=== PATIENT | female | born 1975 | race African-American/Black ===

== ENCOUNTER 2017-04-28 11:05 | Emergency (ER) | payer OTHER ==
--- NOTE | 2017-04-28 12:10 | ER Document Report ---
HPI - HPI Pain Level: 4 Notes: Patient is a 42-year-old female who presents the ED complaining of bilateral eye redness and watery discharge with pruritus x1d. Patient states she used warm compresses this morning which helped. Patient left work early because of possible pinkeye. She denies any recent illness. Patient does take Claritin for allergies on occasion. Denies any headache, fever, neck pain/stiffness, eye pain, purulent discharge, changes in vision, light sensitivity, ear pain, URI, sore throat, chest pain, palpitations, syncope, cough, shortness of breath , wheeze, dyspnea, abdominal pain, nausea/vomiting/diarrhea, dysuria, hematuria , joint pains, or rash. - ROS Notes: REVIEW OF SYSTEMS: CONSTITUTIONAL : Denies fever, chills, or sweats. Denies recent illness. EENT: see hpi CARDIOVASCULAR: Denies chest pain. Denies palpitations or racing or irregular heart beat. Denies ankle edema. RESPIRATORY: Denies cough, cold, or chest congestion. Denies shortness of breath, difficulty breathing, or wheezing. GASTROINTESTINAL: Denies abdominal pain or distention. Denies nausea, vomiting , or diarrhea. Denies blood in vomitus, stools, or per rectum. Denies black, tarry stools. Denies constipation. GENITOURINARY: Denies difficulty urinating, painful urination, burning, frequency, blood in urine, or discharge. MUSCULOSKELETAL: Denies back or neck pain or stiffness. Denies joint pain or swelling. SKIN: Denies rash, lesions or sores. NEUROLOGICAL: Denies confusion or altered mental status. Denies passing out or loss of consciousness. Denies dizziness or lightheadedness. Denies headache. Denies weakness or paralysis or loss of use of either side. Denies problems with gait or speech. Denies sensory loss, numbness, or tingling. ALL OTHER SYSTEMS REVIEWED AND NEGATIVE. Dictation was performed using [employer] voice recognition software - REPRODUCTIVE Reproductive: DENIES: : - DERM Skin Color: Normal Past Medical History - Social History Smoking Status: Never Smoker Family History: Reviewed & Not Pertinent Renal/ Medical History: Denies: Hx Peritoneal Dialysis Past Surgical History: Reports: Hx Gynecologic Surgery - bartholin gland abscess , Hx Orthopedic Surgery - Immunizations Immunizations up to date: Yes Hx Diphtheria, Pertussis, Tetanus Vaccination: Yes Vertical Provider Document - CONSTITUTIONAL Agree With Documented VS: Yes Notes: PHYSICAL EXAMINATION: GENERAL: Well-appearing, well-nourished and in no acute distress. HEAD: Atraumatic, normocephalic. EYES: Pupils equal round and reactive to light, extraocular movements intact, sclera anicteric, conjunctiva are injected. watery discharge noted. No matting , purulence, or tenderness. No surrounding erythema or swelling of lid margins. vis moser intact. ENT: EAC clear b/l. TM's intact b/l without erythema, fluid, or perforation. Nares patent and without discharge. oropharynx clear without exudates. No tonsilar hypertrophy or erythema. Moist mucous membranes. No sinus tenderness. NECK: Normal range of motion, supple without lymphadenopathy. No rigidity/ meningismus. LUNGS: Breath sounds clear to auscultation bilaterally and equal. No wheezes rales or rhonchi. HEART: Regular rate and rhythm without murmurs, rubs, gallops. Extremities: No cyanosis, clubbing, or edema b/l. Peripheral pulses 2+. Capillary refill less than 3 seconds. NEUROLOGICAL: Cranial nerves grossly intact. Normal speech, normal gait. Normal sensory, motor exams PSYCH: Normal mood, normal affect. SKIN: Warm, Dry, normal turgor, no rashes or lesions noted. - INFECTION CONTROL TRAVEL OUTSIDE OF THE [place] IN LAST 30 DAYS: No - RESPIRATORY O2 Sat by Pulse Oximetry: 100 Course - Re-evaluation Re-evalutation: 04/28/17 12:18 Patient is an afebrile, well-hydrated, 42-year-old female who presents the ED with conjunctivitis, suspect allergy versus viral at this time. Vitals are stable. PE otherwise unremarkable. Eye exam performed with fluorescein staining revealed no acute pathology. I will send her home with a prescription for cromolyn sodium drops to use as directed. Low suspicion/risk for retained corneal or lid foreign body, orbital cellulitis/abscess, acute glaucoma, penetrating globe injury, retinal detachment, meningitis, sepsis, or other systemic emergent condition at this time. Patient is aware that her condition can change from initial presentation and she needs to monitor symptoms closely and seek medical attention if any acute changes. Conservative measures otherwise for symptoms. Advised recheck with ophthalmology with ongoing/ worsening symptoms. Recheck with her PCM this week. Return to the ED with any worsening/concerning symptoms otherwise as reviewed in discharge. Patient is in agreement. - Vital Signs Vital signs: Temp Pulse Resp BP Pulse Ox 98.8 F 84 18 154/90 H 100 04/28/17 11:11 04/28/17 11:11 04/28/17 11:11 04/28/17 11:11 04/28/17 11:11 Procedures - Eye Procedure Bilateral Time completed: 12:00 Eye Irrigated w/ Saline (ccs): 20 - each Alcaine Drops Administered: Yes - tetracaine Fluorescein applied: Bilateral - no acute pathology. No lesions, ulceration, foreign body, abrasion, or other uptake. Lids everted and wiped. Slit lamp used: No Discharge - Discharge Clinical Impression: Allergic conjunctivitis Qualifiers: Laterality: bilateral Qualified Code(s): H10.13 - Acute atopic conjunctivitis, bilateral Condition: Stable Disposition: HOME, SELF-CARE Instructions: Conjunctivitis, Allergic Additional Instructions: keep eyes clean Avoid scratching/touching eyes Wash hands regularly Use eye drops as directed Maintain adequate fluid intake tylenol/ibuprofen as needed over the counter cold medication as needed for symptoms F/u: with your PCM in 2-3 days for a recheck Consider consult with Ophthalmology for ongoing/worsening symptoms Return to the ED with any worsening symptoms and/or development of fever, headache, changes in vision, eye pain, worsening eye redness, redness around the eyes, purulent discharge, sore throat, facial swelling, neck pain/stiffness , chest pain, palpitations, syncope, shortness of breath, trouble breathing, abdominal pain, n/v/d, blood in stool/urine, dysuria, or other worsening symptoms that are concerning to you. Prescriptions: Cromolyn Sodium [Crolom Opthalmic Drops] 1 - 2 drop OP QID PRN #1 bottle PRN Reason: Forms: Elevated Blood Pressure Referrals: RAFIA BYNUM DO [ACTIVE STAFF] - Follow up as needed
[2017-04-28 12:42] VITALS: BP 138/93
== END 2017-04-28 12:38 | disposition home or self-care (01) ==
LOC: ER 11:05
DX: H10.13 Acute atopic conjunctivitis, bilateral (principal); H57.13 Ocular pain, bilateral
CPT/HCPCS: 99283

== ENCOUNTER → 2018-03-21 | Outpatient (CLI) | payer OTHER ==
--- NOTE | 2018-03-21 12:05 | WOMENS IMAGING REPORT ---
EXAM DESCRIPTION: 3D DX MAMMO BILAT; U/S BREAST UNILAT LIMITED COMPLETED DATE/TIME: 03/21/2018 9:32 am; 03/21/2018 10:17 am REASON FOR STUDY: LEFT BREAST LUMP; LEFT BREAST LUMP; N63 N63.0 UNSPECIFIED LUMP IN UNSPECIFIED BR EAST COMPARISON: None. TECHNIQUE: Standard craniocaudal and mediolateral oblique views of each breast recorded using digita l acquisition and breast tomosynthesis. True lateral view left breast. LIMITATIONS: None. FINDINGS: RIGHT BREAST MASSES: No suspicious masses. CALCIFICATIONS: No new or suspicious calcifications. ARCHITECTURAL DISTORTION: None. DEVELOPING DENSITY: None. ASYMMETRY: None noted. OTHER: No other significant findings. LEFT BREAST MASSES: Several small well-circumscribed masses lateral to the nipple, including a small mass 1-2 o'c lock corresponding to palpable abnormality. CALCIFICATIONS: No new or suspicious calcifications. ARCHITECTURAL DISTORTION: None. DEVELOPING DENSITY: None. ASYMMETRY: None noted. OTHER: No other significant finding. Read with the assistance of CAD: .[facility] - R2 Cenova Version 1.3 .[facility] Imaging - R2 Cenova Version 1.3 .[facility] Imaging - R2 Cenova Version 2.4 .[facility] - R2 Cenova Version 2.4 .[facility] - R2 Senior Abap Developer Version 9.2 Ultrasound demonstrates benign cysts, the largest 1.6 x 1.2 cm. No solid mass. IMPRESSION: Benign cysts. BREAST DENSITY: b. There are scattered areas of fibroglandular density. BIRAD: 2 Benign findings. RECOMMENDATION: RECOMMENDED FOLLOW UP: Clinical followup. Routine mammographic follow-up. SPECIFIC INTERVENTION/IMAGING/CONSULTATION RECOMMENDED:No additional intervention/ imaging/consultati on needed at this time. COMMUNICATION:The imaging findings were not discussed with the patient. Her referring provider has be en notified of the findings. COMMENT: The patient has been notified of the results by letter per SA requirements. Additional no tification policies are in place for contacting patient with suspicious or incomplete findings. Quality ID #[id number]: The [employer] recommends an annual screening mammogram for women aged 40 years or over. This facility utilizes a reminder system to ensure that all patients receive reminder letters, and/or direct phone calls for appointments. This includes reminders for routine scr eening mammograms, diagnostic mammograms, or other Breast Imaging Interventions when appropriate. Th is patient will be placed in the appropriate reminder system. The [employer] (ACR) has developed recommendations for screening MRI of the breast s in certain patient populations, to be used in conjunction with mammography. Breast MRI surveillanc e may be appropriate for women with more than 20% lifetime risk of developing breast cancer as deter mined by genetic testing, significant family history of the disease, or history of mantle radiation f or Hodgkins Disease. ACR Practice Guidelines 2008. DBT Technology DBT is a type of tomographic mammography. With conventional mammography, overlapping breast tissue ma y make lesions difficult to detect, even with good compression. DBT uses an x-ray tube that rotates a round the breast, taking images at different angles. These images are then combined to create thin sl ices of the breast that the radiologist can view as a 3D reconstruction. The [employer] unit can perform full-field digital mammograms (2D imaging); or DBT (3D imaging); or both, in a combination mode that quickly performs both the mammogram and the tomosynthesis scan while the breast is still compressed. PQRS 6045F: Fluoroscopic imaging is not utilized for breast tomosynthesis. TECHNICAL DOCUMENTATION: FINDING NUMBER: (1) ASSESSMENT: (1) JOB ID: [id number] [employer]- All Rights Reserved Reading location - IP/workstation name: [email or web address]
--- NOTE | 2018-03-21 12:05 | WOMENS IMAGING REPORT ---
EXAM DESCRIPTION: 3D DX MAMMO BILAT; U/S BREAST UNILAT LIMITED COMPLETED DATE/TIME: 03/21/2018 9:32 am; 03/21/2018 10:17 am REASON FOR STUDY: LEFT BREAST LUMP; LEFT BREAST LUMP; N63 N63.0 UNSPECIFIED LUMP IN UNSPECIFIED BR EAST COMPARISON: None. TECHNIQUE: Standard craniocaudal and mediolateral oblique views of each breast recorded using digita l acquisition and breast tomosynthesis. True lateral view left breast. LIMITATIONS: None. FINDINGS: RIGHT BREAST MASSES: No suspicious masses. CALCIFICATIONS: No new or suspicious calcifications. ARCHITECTURAL DISTORTION: None. DEVELOPING DENSITY: None. ASYMMETRY: None noted. OTHER: No other significant findings. LEFT BREAST MASSES: Several small well-circumscribed masses lateral to the nipple, including a small mass 1-2 o'c lock corresponding to palpable abnormality. CALCIFICATIONS: No new or suspicious calcifications. ARCHITECTURAL DISTORTION: None. DEVELOPING DENSITY: None. ASYMMETRY: None noted. OTHER: No other significant finding. Read with the assistance of CAD: .[facility] - R2 Cenova Version 1.3 .[facility] Imaging - R2 Cenova Version 1.3 .[facility] Imaging - R2 Cenova Version 2.4 .[facility] - R2 Cenova Version 2.4 .[facility] - R2 Watch [employer]ic Version 9.2 Ultrasound demonstrates benign cysts, the largest 1.6 x 1.2 cm. No solid mass. IMPRESSION: Benign cysts. BREAST DENSITY: b. There are scattered areas of fibroglandular density. BIRAD: 2 Benign findings. RECOMMENDATION: RECOMMENDED FOLLOW UP: Clinical followup. Routine mammographic follow-up. SPECIFIC INTERVENTION/IMAGING/CONSULTATION RECOMMENDED:No additional intervention/ imaging/consultati on needed at this time. COMMUNICATION:The imaging findings were not discussed with the patient. Her referring provider has be en notified of the findings. COMMENT: The patient has been notified of the results by letter per SA requirements. Additional no tification policies are in place for contacting patient with suspicious or incomplete findings. Quality ID #[id number]: The [employer] recommends an annual screening mammogram for women aged 40 years or over. This facility utilizes a reminder system to ensure that all patients receive reminder letters, and/or direct phone calls for appointments. This includes reminders for routine scr eening mammograms, diagnostic mammograms, or other Breast Imaging Interventions when appropriate. Th is patient will be placed in the appropriate reminder system. The [employer] (ACR) has developed recommendations for screening MRI of the breast s in certain patient populations, to be used in conjunction with mammography. Breast MRI surveillanc e may be appropriate for women with more than 20% lifetime risk of developing breast cancer as deter mined by genetic testing, significant family history of the disease, or history of mantle radiation f or Hodgkins Disease. ACR Practice Guidelines 2008. DBT Technology DBT is a type of tomographic mammography. With conventional mammography, overlapping breast tissue ma y make lesions difficult to detect, even with good compression. DBT uses an x-ray tube that rotates a round the breast, taking images at different angles. These images are then combined to create thin sl ices of the breast that the radiologist can view as a 3D reconstruction. The [employer] unit can perform full-field digital mammograms (2D imaging); or DBT (3D imaging); or both, in a combination mode that quickly performs both the mammogram and the tomosynthesis scan while the breast is still compressed. PQRS 6045F: Fluoroscopic imaging is not utilized for breast tomosynthesis. TECHNICAL DOCUMENTATION: FINDING NUMBER: (1) ASSESSMENT: (1) JOB ID: [id number] [employer]- All Rights Reserved Reading location - IP/workstation name: [email or web address]
== END ==
LOC: WI 09:07
PROVIDERS: ATTEND Advanced Practice Midwife
DX: N60.02 Solitary cyst of left breast (principal); Z80.3 Family history of malignant neoplasm of breast
CPT/HCPCS: 76642; 77066; G0279; 77062

== ENCOUNTER 2018-04-04 07:38 | Observation (INO) | payer OTHER ==
[2018-04-04] MEDS ORDERED: NORMAL SALINE 1000 ML 1,000 ML IV PRN (08:31)
--- NOTE | 2018-04-04 08:32 | ER Document Report ---
ED General - General Stated Complaint: SYNCOPAL EPISODE Time Seen by Provider: 04/04/18 08:15 Mode of Arrival: Medic Information source: Patient, Relative TRAVEL OUTSIDE OF THE [place] IN LAST 30 DAYS: No - HPI Notes: 42-year-old female to the ED via EMS for complaints of lightheadedness, dizziness, and passing large vaginal clots that started at 0500 this morning. Patient states that she had a similar episode 4 days ago which resolved felt that day as well as another episode 2 months ago vaginal clot passage which she saw her CLINICAL PROGRAMMER at [facility] who stated she was set up with transvaginal ultrasound which has not been set up at this time. Patient states that the dizziness and lightheadedness had resolved. Patient denies being any blood thinners, no recent travel, no recent surgery, denies chemotherapy. Patient does smoke cigarettes as well as marijuana. Denies any heart pain but intermittent shortness of breath. - Related Data Allergies/Adverse Reactions: aspirin [Aspirin] Allergy (Verified 04/28/17 11:11) Past Medical History - General Information source: Patient, Relative - Social History Smoking Status: Current Every Day Smoker Family History: Reviewed & Not Pertinent Renal/ Medical History: Denies: Hx Peritoneal Dialysis Past Surgical History: Reports: Hx Gynecologic Surgery - bartholin gland abscess , Hx Orthopedic Surgery - Immunizations Immunizations up to date: Yes Hx Diphtheria, Pertussis, Tetanus Vaccination: Yes Review of Systems - Review of Systems Constitutional: No symptoms reported EENT: No symptoms reported Cardiovascular: No symptoms reported Respiratory: See HPI Gastrointestinal: No symptoms reported Genitourinary: No symptoms reported Female Genitourinary: See HPI Musculoskeletal: No symptoms reported Skin: No symptoms reported Hematologic/Lymphatic: No symptoms reported Neurological/Psychological: No symptoms reported Physical Exam - Vital signs Vitals: Resp BP 12 90/66 L 04/04/18 07:46 04/04/18 07:46 - Notes Notes: PHYSICAL EXAMINATION: GENERAL: Well-appearing, well-nourished and in no acute distress. HEAD: Atraumatic, normocephalic. EYES: Pupils equal round and reactive to light, extraocular movements intact, conjunctiva are normal. ENT: Nares patent, oropharynx clear without exudates. Moist mucous membranes. NECK: Normal range of motion, supple without lymphadenopathy LUNGS: Breath sounds clear to auscultation bilaterally and equal. No wheezes rales or rhonchi. HEART: Regular rate and rhythm without murmurs ABDOMEN: Soft, nontender, nondistended abdomen. No guarding, no rebound. No masses appreciated. Female : External genitalia without erythema, exudate. Vaginal vault is with blood. Cervix is of normal color without lesion. Uterus is noted to be of normal size and nontender. Noted cervical motion tenderness. No masses are palpated. cervical os closed, no noted mass Musculoskeletal: Normal range of motion, no pitting or edema. No cyanosis. NEUROLOGICAL: Cranial nerves grossly intact. Normal speech, normal gait. Normal sensory, motor exams PSYCH: Normal mood, normal affect. SKIN: Warm, Dry, normal turgor, no rashes or lesions noted. Course - Re-evaluation Re-evalutation: 04/04/18 08:37 42-year-old female who is tachycardic, afebrile and mild distress presents to the ED for vaginal bleeding, dizziness, lightheadedness with SOB. per the PERC rule patient cannot be excluded from PE due to tachycardia 125-130. Last time patient was seen in the ED was 04/28/17, her heart rate was 86. 2 L of normal saline given IV. 1030-lab called with critical lab with a hemoglobin of 5.6 and hemoglobin of 18.6. Chest x-ray unremarkable, first set of cardiac enzymes. negative d dimer negative. Urinalysis shows patient does have a UTI abnd BV. G/C negative. Dr. Tawana Geller at 11:45, advised Premarin, and give blood, and will monitor to see improves with IV fluids and blood transfusion, if pt remains symptomatic will admit pt. Patient given 2 units of packed red blood cells. Patient remained tachycardic however she is afebrile and in no distress. Patient has been screened. patient received first unit of blood, denies any shortness of breath transfusion. 1400, patient remains afebrile, tachycardic at 110 and in no distress 1800-spoke with Dr. Geller stated to admit patient for blood transfusion and monitor H&H and likely discharge patient in the morning. - Vital Signs Vital signs: Temp Pulse Resp BP Pulse Ox 98.9 F 92 18 124/62 100 04/04/18 17:15 04/04/18 17:15 04/04/18 17:15 04/04/18 17:15 04/04/18 17:15 - Laboratory Result Diagrams: 04/04/18 09:35 04/04/18 09:35 Laboratory results interpreted by me: 04/04/18 04/04/18 04/04/18 09:35 09:35 09:35 WBC 14.1 H RBC 2.15 L Hgb 5.8 L Hct 18.6 L MCHC 31.4 L RDW 15.4 H Seg Neutrophils % 83.5 H Lymphocytes % 10.8 L Absolute Neutrophils 11.7 H PT 16.0 H Chloride 110 H Carbon Dioxide 20 L Glucose 115 H Calcium 8.3 L Total Bilirubin < 0.1 L AST 10 L Total Protein 5.7 L Albumin 3.0 L Urine Protein Urine Ketones Urine Blood Ur Leukocyte Esterase Crossmatch 04/04/18 04/04/18 11:18 13:15 WBC RBC Hgb Hct MCHC RDW Seg Neutrophils % Lymphocytes % Absolute Neutrophils PT Chloride Carbon Dioxide Glucose Calcium Total Bilirubin AST Total Protein Albumin Urine Protein 100 H Urine Ketones TRACE H Urine Blood LARGE H Ur Leukocyte Esterase LARGE H Crossmatch See Detail Discharge - Discharge Clinical Impression: Vaginal bleeding, Anemia, UTI (urinary tract infection), BV (bacterial vaginosis) Condition: Stable Disposition: ADMITTED INPATIENT Admitting Provider: Dr. Tawana Geller Unit Admitted: Post - per Dr. Tawana Geller Instructions: Nitrofurantoin ([facility]), Urinary Tract Infection, Child ([facility]), Vaginal Bleeding ([facility]) Referrals: HEVER STEWART CNM [Primary Care Provider] - Follow up as needed
--- NOTE | 2018-04-04 09:06 | RADIOLOGY REPORT (SQ) ---
EXAM DESCRIPTION: CHEST SINGLE VIEW COMPLETED DATE/TIME: 04/04/2018 8:57 am REASON FOR STUDY: tachycardia COMPARISON: None. EXAM PARAMETERS: NUMBER OF VIEWS: One view. TECHNIQUE: Single frontal radiographic view of the chest acquired. RADIATION DOSE: NA LIMITATIONS: None. FINDINGS: LUNGS AND PLEURA: No opacities, masses or pneumothorax. No pleural effusion. MEDIASTINUM AND HILAR STRUCTURES: No masses. Contour normal. HEART AND VASCULAR STRUCTURES: Heart normal in size. Normal vasculature. BONES: No acute findings. HARDWARE: None in the chest. OTHER: No other significant finding. IMPRESSION: NO ACUTE RADIOGRAPHIC FINDING IN THE CHEST. TECHNICAL DOCUMENTATION: JOB ID: [id number] [employer]- All Rights Reserved Reading location - IP/workstation name: [email or web address]
[2018-04-04 10:05] LABS: ABSOLUTE LYMPHOCYTES (AUTO) 1.5 10^3/uL (0.5-4.7); ABSOLUTE MONOCYTES (AUTO) 0.8 10^3/uL (0.1-1.4); ABSOLUTE NEUT (AUTO) 11.7 10^3/uL (1.7-8.2); BASOPHILS % (AUTO) 0.1 % (0-2); HEMATOCRIT 18.6 % (36.0-47.0); LYMPHOCYTES % (AUTO) 10.8 % (13-45); MEAN CORPUSCULAR HEMOGLOBIN 27.2 pg (27.0-33.4); MEAN CORPUSCULAR HGB CONC 31.4 g/dL (32.0-36.0); MEAN CORPUSCULAR VOLUME 87 fl (80-97); MONOCYTES % (AUTO) 5.6 % (3-13); PLATELET COUNT 296 10^3/uL (150-450); RED BLOOD COUNT 2.15 10^6/uL (3.72-5.28); RED CELL DISTRIBUTION WIDTH 15.4 % (11.5-14.0); SEGMENTED NEUTROPHILS % (AUTO) 83.5 % (42-78); TOTAL CELLS COUNTED % (AUTO) 100 %; WHITE BLOOD COUNT 14.1 10^3/uL (4.0-10.5)
[2018-04-04 10:11] LABS: ALANINE AMINOTRANSFERASE 20 U/L (9-52); ALKALINE PHOSPHATASE 62 U/L (38-126); ANION GAP 13 (5-19); ASPARTATE AMINO TRANSFERASE 10 U/L (14-36); BLOOD UREA NITROGEN 8 mg/dL (7-20); CALCIUM 8.3 mg/dL (8.4-10.2); CARBON DIOXIDE 20 mmol/L (22-30); CHLORIDE 110 mmol/L (98-107); CREATINE KINASE 53 U/L (30-135); GLUCOSE 115 mg/dL (75-110); POTASSIUM 3.9 mmol/L (3.6-5.0); SODIUM 143.4 mmol/L (137-145); TOTAL PROTEIN 5.7 g/dL (6.3-8.2)
[2018-04-04 10:14] LABS: BILIRUBIN,TOTAL < 0.1 mg/dL (0.2-1.3)
[2018-04-04 10:17] LABS: HEMOGLOBIN 5.8 g/dL (12.0-15.5)
[2018-04-04] MEDS ORDERED: NORMAL SALINE 1000 ML 1,000 ML IV ONE (10:20)
[2018-04-04] MEDS ORDERED: NORMAL SALINE 250 ML IV PRN ×2 (10:26)
[2018-04-04 10:27] LABS: CREATINE KINASE MB < 0.22 ng/mL (<4.55); INTERNATIONAL RATION (INR) 1.22; TROPONIN I < 0.012 ng/mL
[2018-04-04 10:28] LABS: PARTIAL THROMBOPLASTIN TIME 27.5 SEC (23.5-35.8)
[2018-04-04 10:30] LABS: D-DIMER 0.37 ug/mL (0.00-0.50)
[2018-04-04 10:42] LABS: RBCS (WET MOUNT) 3+ RBCS SEEN; T.VAGINALIS (WET MOUNT) NO TRICHOMONAS SEEN; WBCS (WET MOUNT) 3+ WBCS SEEN; YEAST (WET MOUNT) NO YEAST SEEN
[2018-04-04 10:43] LABS: BACTERIA (WET MOUNT) 3+ BACTERIA SEEN
--- NOTE | 2018-04-04 11:36 | RADIOLOGY REPORT (SQ) ---
EXAM DESCRIPTION: U/S NON OB PEL TV W/DOPPLER COMPLETED DATE/TIME: 04/04/2018 11:22 am REASON FOR STUDY: vaginal bleeding COMPARISON: None. TECHNIQUE: Transvaginal and transabdominal static and realtime grayscale images acquired of the pelv is. Additional selected spectral and color Doppler images recorded. All images stored on PACs. BHCG: Not available. LIMITATIONS: None. FINDINGS: UTERUS: 12 x 6 x 5 cm. No visualized intrauterine . Endometrial stripe 16 mm. RIGHT ADNEXA: Normal ovary with normal vascular flow. No adnexal free fluid. No adnexal masses. LEFT ADNEXA: Normal ovary with normal vascular flow. No adnexal free fluid. No adnexal masses. FREE FLUID: None. OTHER: 5 x 6 cm heterogeneous hyperechoic lesion in the vagina, most likely blood clots. IMPRESSION: BLOOD CLOT IN THE VAGINA. NO VISUALIZED INTRA- OR EXTRAUTERINE . bHCG LEVEL NOT AVAILABLE FOR CORRELATION WITH US FINDINGS. ECTOPIC CANNOT BE EXCLUDED. FOLLOW-UP ULTRASOUND AND SERIAL BHCG LEVELS STRONGLY RECOMMENDED TO ACCURATELY ASSESS STATU S. TECHNICAL DOCUMENTATION: JOB ID: [id number] [employer]- All Rights Reserved Reading location - IP/workstation name: [email or web address]
[2018-04-04] MEDS ORDERED: ESTROGENS,CONJUGATED 25 MG VIAL IV ONE ×2 (11:56→21:30)
[2018-04-04 13:13] LABS: CHLAM PCR NOT DETECTED (NOT DETECT); GON PCR NOT DETECTED (NOT DETECT)
--- NOTE | 2018-04-04 13:37 | EKG REPORT ---
SEVERITY:- BORDERLINE ECG - SINUS RHYTHM BORDERLINE T WAVE ABNORMALITIES : Confirmed by: Kelly Terry MD 04-Apr-2018 13:36:31
[2018-04-04] MEDS: NORMAL SALINE 250 ML IV PRN ×2 (13:49→16:54)
[2018-04-04 13:54] LABS: APPEARANCE,URINE CLOUDY; BILIRUBIN,URINE NEGATIVE (NEGATIVE); GLUCOSE, URINE NEGATIVE (NEGATIVE); KETONES,URINE TRACE mg/dL (NEGATIVE); LEUKOCYTE ESTERASE,URINE LARGE (NEGATIVE); NITRITE,URINE NEGATIVE (NEGATIVE); PROTEIN,URINE 100 mg/dL (NEGATIVE); URINE SPECIFIC GRAVITY 1.005; UROBILINOGEN,URINE NEGATIVE mg/dL (<2.0)
[2018-04-04 13:55] LABS: COLOR,URINE DARK YELLOW
[2018-04-04] MEDS ORDERED: DIPHENHYDRAMINE HCL 50 MG CAPSULE PO ONE (15:17)
[2018-04-04] MEDS ORDERED: NITROFURANTOIN MONOHYD/M-CRYST 100 MG CAPSULE PO ONE (17:54)
[2018-04-04] MEDS ORDERED: METRONIDAZOLE 500 MG TABLET PO ONE (17:58)
[2018-04-04 18:40] LABS: ABSOLUTE LYMPHOCYTES (AUTO) 2.7 10^3/uL (0.5-4.7); ABSOLUTE MONOCYTES (AUTO) 0.7 10^3/uL (0.1-1.4); BASOPHILS % (AUTO) 0.3 % (0-2); EOSINOPHILS % (AUTO) 0.1 % (0-6); HEMATOCRIT 20.7 % (36.0-47.0); LYMPHOCYTES % (AUTO) 28.6 % (13-45); MEAN CORPUSCULAR HEMOGLOBIN 27.5 pg (27.0-33.4); MEAN CORPUSCULAR HGB CONC 32.9 g/dL (32.0-36.0); MEAN CORPUSCULAR VOLUME 84 fl (80-97); PLATELET COUNT 262 10^3/uL (150-450); RED BLOOD COUNT 2.47 10^6/uL (3.72-5.28); RED CELL DISTRIBUTION WIDTH 15.5 % (11.5-14.0); TOTAL CELLS COUNTED % (AUTO) 100 %; WHITE BLOOD COUNT 9.4 10^3/uL (4.0-10.5)
[2018-04-04 18:49] LABS: HEMOGLOBIN 6.8 g/dL (12.0-15.5)
[2018-04-04] MEDS ORDERED: RINGERS SOLUTION,LACTATED 1,000 ML IV PRN (23:16)
[2018-04-04] MEDS ORDERED: ESTROGENS,CONJUGATED 25 MG VIAL IV SCH (23:30)
[2018-04-04 23:48] LABS: MEAN CORPUSCULAR HEMOGLOBIN 27.8 pg (27.0-33.4); MEAN CORPUSCULAR HGB CONC 33.6 g/dL (32.0-36.0); MEAN CORPUSCULAR VOLUME 83 fl (80-97); PLATELET COUNT 233 10^3/uL (150-450); RED BLOOD COUNT 2.54 10^6/uL (3.72-5.28); RED CELL DISTRIBUTION WIDTH 15.9 % (11.5-14.0); WHITE BLOOD COUNT 10.1 10^3/uL (4.0-10.5)
[2018-04-04 23:51] LABS: HEMOGLOBIN 7.1 g/dL (12.0-15.5)
[2018-04-05] MEDS ORDERED: DIPHENHYDRAMINE HCL 25 MG CAPSULE PO SCH (00:15)
[2018-04-05] MEDS ORDERED: ACETAMINOPHEN 325 MG TABLET PO SCH (00:15)
[2018-04-05] MEDS ORDERED: DIPHENHYDRAMINE HCL 25 MG CAPSULE PO ONE (02:45)
[2018-04-05] MEDS ORDERED: ACETAMINOPHEN 325 MG TABLET PO ONE (02:45)
[2018-04-05] MEDS ORDERED: ESTROGENS,CONJUGATED 25 MG VIAL ONE (06:30)
--- NOTE | 2018-04-05 07:22 | PDOC H&P ---
History of Present Illness Admission Date/PCP: 04/04/18 18:28 HEVER STEWART CNM Patient complains of: fatigue and heavy vaginal bleeding x 3 days History of Present Illness: RIOS KLEIN is a 42 year old female with heavy vaginal bleeding x 3 days that has included heavy clots Past Medical History LMP: 04/12/18 2 Obstetrical History: history of one terminated and 3 vaginal deliveries Past Surgical History Past Surgical History: Reports: Orthopedic Surgery Social History Smoking Status: Current Every Day Smoker Drugs: Marijuana - Advance Directive Resuscitation Status: Full Code Family History Family History: Reviewed & Not Pertinent Parental Family History Reviewed: Yes - mother had breast cancer. father of colon cancer Children Family History Reviewed: Yes Sibling(s) Family History Reviewed.: Yes Medication/Allergy Home Medications: No Home Medications 04/04/18 Allergies/Adverse Reactions: aspirin [Aspirin] Allergy (Verified 04/28/17 11:11) Physical Exam - Physical Exam Vital Signs: Temp Pulse Resp BP Pulse Ox 98.9 F 90 15 117/65 100 04/05/18 06:10 04/05/18 06:10 04/05/18 06:10 04/05/18 06:10 04/05/18 06:10 Intake & Output 04/04/18 04/05/18 04/06/18 06:59 06:59 06:59 Intake Total 1500 Balance 1500 Weight 74.8 kg General appearance: PRESENT: no acute distress, cooperative GI/Abdominal exam: PRESENT: soft Result Laboratory Results: 04/04/18 23:36 04/04/18 23:36 WBC 10.1 RBC 2.54 L Hgb 7.1 L Hct 21.0 L MCV 83 MCH 27.8 MCHC 33.6 RDW 15.9 H Plt Count 233 Impressions: Chest X-Ray 04/04/18 08:28 IMPRESSION: NO ACUTE RADIOGRAPHIC FINDING IN THE CHEST. Transvaginal US 04/04/18 08:29 IMPRESSION: BLOOD CLOT IN THE VAGINA. NO VISUALIZED INTRA- OR EXTRAUTERINE . bHCG LEVEL NOT AVAILABLE FOR CORRELATION WITH US FINDINGS. ECTOPIC CANNOT BE EXCLUDED. FOLLOW-UP ULTRASOUND AND SERIAL BHCG LEVELS STRONGLY RECOMMENDED TO ACCURATELY ASSESS STATUS. Assessment & Plan - Diagnosis (1) Anemia Qualifiers: Iron deficiency anemia type: chronic blood loss Is this a current diagnosis for this admission?: Yes (2) BV (bacterial vaginosis) Is this a current diagnosis for this admission?: Yes (3) UTI (urinary tract infection) Is this a current diagnosis for this admission?: Yes (4) Vaginal bleeding Is this a current diagnosis for this admission?: Yes - Time Time Spent: 30 to 50 Minutes Critical Time spent with patient: Less than 15 minutes Anticipated discharge: Home Within: within 24 hours - Inpatient Certification Based on my medical assessment, after consideration of the patient's comorbidities, presenting symptoms, or acuity I expect that the services needed warrant INPATIENT care.: Yes I certify that my determination is in accordance with my understanding of Medicare's requirements for reasonable and necessary INPATIENT services [42 CFR 412.3e].: Yes Medical Necessity: Need Close Monitoring Due to Risk of Patient Decompensation - Plan Summary Plan Summary: d/w patient and will discharge home with a stable hemoglobin with hormonal medication for bleeding. Needs follow up in office for endometrial biopsy
[2018-04-05 09:11] LABS: HEMATOCRIT 23.7 % (36.0-47.0); MEAN CORPUSCULAR HEMOGLOBIN 28.2 pg (27.0-33.4); MEAN CORPUSCULAR HGB CONC 33.8 g/dL (32.0-36.0); MEAN CORPUSCULAR VOLUME 83 fl (80-97); PLATELET COUNT 230 10^3/uL (150-450); RED BLOOD COUNT 2.85 10^6/uL (3.72-5.28); RED CELL DISTRIBUTION WIDTH 15.7 % (11.5-14.0); WHITE BLOOD COUNT 8.4 10^3/uL (4.0-10.5)
[2018-04-05] MEDS ORDERED: DIPHENHYDRAMINE HCL 25 MG CAPSULE ONE (11:19)
[2018-04-05] MEDS ORDERED: DIPHENHYDRAMINE HCL 25 MG CAPSULE PO PRN (11:41)
[2018-04-05 11:44] LABS: IRON(TIBC) 15.7 ug/dL (37-170)
[2018-04-05] MEDS ORDERED: ESTROGENS,CONJUGATED 25 MG VIAL IV SCH ×3 (12:00→15:58)
[2018-04-05 12:20] LABS: FERRITIN 7.21 ng/mL (6.2-137.0)
[2018-04-05] MEDS ORDERED: MEDROXYPROGESTERONE ACET 10 MG TABLET PO SCH ×2 (16:00→18:00)
--- NOTE | 2018-04-05 18:32 | PDOC DISCHARGE SUMMARY ---
General - Admit/Disc Date/PCP Admission Date/Primary Care Provider: 04/04/18 18:28 HEVER STEWARTRICHAR Discharge Date: 04/05/18 - Discharge Diagnosis (1) Vaginal bleeding Is this a current diagnosis for this admission?: Yes - Additional Information Resuscitation Status: Full Code Home Medications: No Home Medications 04/04/18 History of Present Illness Patient complains of: Vaginal bleeding History of Present Illness: RIOS KLEIN is a 42 year old female She was admitted with heavy vaginal bleeding. She is not . She was given 3 units of blood and IV Premarin. Her bleeding has now stopped. We have started her on Provera. She which she is to go home this evening and feels comfortable doing so. Hospital Course Hospital Course: She was given IV Premarin and Provera. Her bleeding is stopped. We have obtained a hematology consult as well. She will be discharged to home. Physical Exam - Physical Exam Vital Signs: Temp Pulse Resp BP Pulse Ox 99.2 F 101 H 20 108/58 L 100 04/05/18 15:42 04/05/18 15:42 04/05/18 15:42 04/05/18 15:42 04/05/18 15:42 Intake & Output 04/04/18 04/05/18 04/06/18 06:59 06:59 06:59 Intake Total 1500 880 Balance 1500 880 Weight 74.8 kg General appearance: PRESENT: no acute distress, well-developed, well-nourished Result Laboratory Results: 04/05/18 08:55 04/04/18 04/05/18 23:36 08:55 WBC 10.1 8.4 RBC 2.54 L 2.85 L Hgb 7.1 L 8.0 L Hct 21.0 L 23.7 L MCV 83 83 MCH 27.8 28.2 MCHC 33.6 33.8 RDW 15.9 H 15.7 H Plt Count 233 230 Impressions: Chest X-Ray 04/04/18 08:28 IMPRESSION: NO ACUTE RADIOGRAPHIC FINDING IN THE CHEST. Transvaginal US 04/04/18 08:29 IMPRESSION: BLOOD CLOT IN THE VAGINA. NO VISUALIZED INTRA- OR EXTRAUTERINE . bHCG LEVEL NOT AVAILABLE FOR CORRELATION WITH US FINDINGS. ECTOPIC CANNOT BE EXCLUDED. FOLLOW-UP ULTRASOUND AND SERIAL BHCG LEVELS STRONGLY RECOMMENDED TO ACCURATELY ASSESS STATUS. Plan Discharge Plan: Plan is discharge home on Provera 10 mg twice daily. Follow-up in the office later in the week for endometrial biopsy and further treatment. Return with heavy bleeding. Time Spent: Less than 30 Minutes
[2018-04-05 20:15] VITALS: BP 124/92
== END 2018-04-05 20:08 | disposition home or self-care (01) ==
LOC: ER 07:38 → INTOOBSV 18:28 → EH 18:28 → 4S 23:30 → LR 23:55 → 2N 04-05 00:27
PROVIDERS: ADMIT Obstetrics & Gynecology; ATTEND Obstetrics & Gynecology
PROC: 30233N1 Transfusion of Nonautologous Red Blood Cells into Peripheral Vein, Percutaneous Approach (ICD-10-PCS; principal; 2018-04-04)
PROC: 30233N1 Transfusion of Nonautologous Red Blood Cells into Peripheral Vein, Percutaneous Approach (ICD-10-PCS; 2018-04-05)
DX: N93.9 Abnormal uterine and vaginal bleeding, unspecified (principal); F17.200 Nicotine dependence, unspecified, uncomplicated; D50.0 Iron deficiency anemia secondary to blood loss (chronic); N76.0 Acute vaginitis; N39.0 Urinary tract infection, site not specified; R00.0 Tachycardia, unspecified; Z32.02 Encounter for pregnancy test, result negative; Z98.890 Other specified postprocedural states; Z87.59 Personal history of other complications of pregnancy, childbirth and the puerperium
CPT/HCPCS: 93005; 99285; 96360; 96361; 86900; 86901; 36415 ×2; 87086; 82553; 87210; 36430; 86850; 82550; 82728; 83540; 83550; 84703; 85025; 85027 ×2; 85610; 85730; 80053; 81001; 84484; 86920; 85379; 87491; 87591; 71045; 76830; 93976; 93010; G0378 ×2; P9016 ×2; J1410 ×2; J3490; J7030; J7050; J8499

== ENCOUNTER 2018-04-20 01:30 | Emergency (ER) | payer OTHER ==
[2018-04-20 01:51] VITALS: BP 127/71
--- NOTE | 2018-04-20 02:41 | ER Document Report ---
ED GI/ - General Chief Complaint: Vaginal Bleeding Stated Complaint: VAGINAL BLEEDING Time Seen by Provider: 04/20/18 01:57 Mode of Arrival: Ambulatory Information source: Patient Notes: Patient is a 43-year-old female who was recently diagnosed with ovarian cancer presenting with chief complaint of vaginal bleeding that started 1 hour prior to arrival. Patient is very tearful and anxious. Patient reports that Dr. Medrano at [facility] diagnosed the cervical cancer. Patient reports she is now being seen by the cancer center in [place]. Patient denies any pain or any other complaints. TRAVEL OUTSIDE OF THE [place] IN LAST 30 DAYS: No - Related Data Allergies/Adverse Reactions: aspirin [Aspirin] Allergy (Verified 04/28/17 11:11) Past Medical History - General Information source: Patient - Social History Smoking Status: Never Smoker Frequency of alcohol use: Occasional Drug Abuse: Marijuana Family History: Reviewed & Not Pertinent Patient has suicidal ideation: No Patient has homicidal ideation: No Renal/ Medical History: Denies: Hx Peritoneal Dialysis Malignancy Medical History: Reports: Hx Cervical Cancer Past Surgical History: Reports: Hx Gynecologic Surgery - bartholin gland abscess , Hx Orthopedic Surgery - Immunizations Immunizations up to date: Yes Hx Diphtheria, Pertussis, Tetanus Vaccination: Yes Review of Systems - Review of Systems Constitutional: No symptoms reported EENT: No symptoms reported Cardiovascular: No symptoms reported Respiratory: No symptoms reported Gastrointestinal: No symptoms reported Genitourinary: No symptoms reported Female Genitourinary: See HPI Musculoskeletal: No symptoms reported Skin: No symptoms reported Hematologic/Lymphatic: No symptoms reported Neurological/Psychological: No symptoms reported Physical Exam - Vital signs Vitals: Temp Pulse Resp BP Pulse Ox 98.0 F 134 H 16 127/71 H 100 04/20/18 01:37 04/20/18 01:37 04/20/18 01:37 04/20/18 01:37 04/20/18 01:37 - Notes Notes: PHYSICAL EXAMINATION: GENERAL: Well-appearing, well-nourished and in no acute distress. HEAD: Atraumatic, normocephalic. EYES: Pupils equal round and reactive to light, extraocular movements intact, conjunctiva are normal. ENT: Nares patent, oropharynx clear without exudates. Moist mucous membranes. NECK: Normal range of motion, supple without lymphadenopathy LUNGS: Breath sounds clear to auscultation bilaterally and equal. No wheezes rales or rhonchi. HEART: Regular rate and rhythm without murmurs ABDOMEN: Soft, nontender, nondistended abdomen. No guarding, no rebound. No masses appreciated. Female : Speculum exam reveals scant bleeding from the cervical loss, no cervical motion tenderness or adnexal tenderness noted. Musculoskeletal: Normal range of motion, no pitting or edema. No cyanosis. NEUROLOGICAL: Cranial nerves grossly intact. Normal speech, normal gait. Normal sensory, motor exams PSYCH: Normal mood, normal affect. SKIN: Warm, Dry, normal turgor, no rashes or lesions noted. Course - Re-evaluation Re-evalutation: Scant bleeding is noted on vaginal exam. No active hemorrhage. CBC was drawn and is stable in comparison with labs drawn on 04/05/18. Patient has not soaked through one pad over the last 2-1/2 hours. Patient is already taking Provera. Patient has tachycardia but only when we entered the room. Patient does report that she has a history of anxiety and is very worked up about her recent diagnosis of cancer. Patient would like to be discharged home and will follow up with [facility] later this morning. Patient encouraged to return immediately to the emergency department if she develops worsening vaginal bleeding or is bleeding through more than 1 pad per hour. - Vital Signs Vital signs: Temp Pulse Resp BP Pulse Ox 98.0 F 101 H 16 127/71 H 99 04/20/18 01:37 04/20/18 03:20 04/20/18 01:37 04/20/18 01:37 04/20/18 05:00 - Laboratory Result Diagrams: 04/20/18 02:55 04/20/18 02:55 Laboratory results interpreted by me: 04/20/18 04/20/18 02:55 02:55 RBC 2.87 L Hgb 8.2 L Hct 24.9 L RDW 17.6 H Total Protein 6.2 L Albumin 3.2 L Discharge - Discharge Clinical Impression: Vaginal bleeding Condition: Stable Disposition: HOME, SELF-CARE Additional Instructions: Your blood work today was normal. Please call your provider at [facility], let them know you were here with a episode of vaginal bleeding. Please return to the emergency department for any additional concerns to include dizziness, fainting, increased vaginal bleeding. Forms: Return to Work Referrals: CHACHO MEDRANO MD [Primary Care Provider] - Follow up as needed
[2018-04-20 03:25] LABS: ABSOLUTE LYMPHOCYTES (AUTO) 1.9 10^3/uL (0.5-4.7); ABSOLUTE MONOCYTES (AUTO) 0.7 10^3/uL (0.1-1.4); ABSOLUTE NEUT (AUTO) 4.6 10^3/uL (1.7-8.2); BASOPHILS % (AUTO) 0.4 % (0-2); EOSINOPHILS % (AUTO) 0.5 % (0-6); HEMATOCRIT 24.9 % (36.0-47.0); HEMOGLOBIN 8.2 g/dL (12.0-15.5); LYMPHOCYTES % (AUTO) 25.8 % (13-45); MEAN CORPUSCULAR HEMOGLOBIN 28.6 pg (27.0-33.4); MEAN CORPUSCULAR HGB CONC 32.9 g/dL (32.0-36.0); MONOCYTES % (AUTO) 9.5 % (3-13); PLATELET COUNT 378 10^3/uL (150-450); RED BLOOD COUNT 2.87 10^6/uL (3.72-5.28); RED CELL DISTRIBUTION WIDTH 17.6 % (11.5-14.0); SEGMENTED NEUTROPHILS % (AUTO) 63.8 % (42-78); TOTAL CELLS COUNTED % (AUTO) 100 %; WHITE BLOOD COUNT 7.2 10^3/uL (4.0-10.5)
[2018-04-20 03:26] LABS: MEAN CORPUSCULAR VOLUME 87 fl (80-97)
[2018-04-20 03:43] LABS: ALANINE AMINOTRANSFERASE 24 U/L (9-52); ALBUMIN 3.2 g/dL (3.5-5.0); ALKALINE PHOSPHATASE 55 U/L (38-126); ANION GAP 10 (5-19); ASPARTATE AMINO TRANSFERASE 20 U/L (14-36); BILIRUBIN,DIRECT 0.2 mg/dL (0.0-0.4); BILIRUBIN,TOTAL 0.2 mg/dL (0.2-1.3); BLOOD UREA NITROGEN 11 mg/dL (7-20); CALCIUM 8.6 mg/dL (8.4-10.2); CARBON DIOXIDE 25 mmol/L (22-30); CHLORIDE 104 mmol/L (98-107); GLUCOSE 104 mg/dL (75-110); POTASSIUM 4.2 mmol/L (3.6-5.0); SODIUM 139.1 mmol/L (137-145); TOTAL PROTEIN 6.2 g/dL (6.3-8.2)
== END 2018-04-20 05:18 | disposition home or self-care (01) ==
LOC: ER 01:30
DX: N93.9 Abnormal uterine and vaginal bleeding, unspecified (principal); C56.9 Malignant neoplasm of unspecified ovary; Z88.6 Allergy status to analgesic agent; Z79.899 Other long term (current) drug therapy
CPT/HCPCS: 36415; 80053; 85025; 86850; 86900; 86901; 99284

== ENCOUNTER 2018-10-21 12:21 | Emergency (ER) | payer OTHER ==
[2018-10-21] MEDS ORDERED: NORMAL SALINE 1000 ML 1,000 ML IV ONE (12:54)
[2018-10-21] MEDS ORDERED: LORAZEPAM INJ 2 MG/1 ML VIAL IV ONE (12:55)
--- NOTE | 2018-10-21 12:57 | ER Document Report ---
ED Medical Screen (RME) - General Chief Complaint: Anxiety Stated Complaint: SHORT OF BREATH,ANXIOUS FEELING Time Seen by Provider: 10/21/18 12:42 Primary Care Provider: CHACHO MEDRANO MD [Primary Care Provider] - Follow up as needed Notes: Patient is a 43-year-old female with history of cervical cancer that presents to the emergency department for chief complaint of anxiety symptoms. Patient states she is been having nervousness, shakiness, insomnia and night sweats almost daily, over the past 2 weeks, no history of anxiety before. She just went through chemo radiation therapy for stage Ib cervical cancer, she does have a lot of reasons to be anxious, she is currently on estrogen therapy as well.. ROS: Other than noted above, the 12 point review of systems was reviewed with the patient and were negative, all pertinent findings are included in the HPI. PHYSICAL EXAMINATION: Vital signs reviewed. GENERAL: Patient appears nervous and anxious HEAD: Atraumatic, normocephalic. EYES: Pupils equal round extraocular movements intact, conjunctiva are normal. ENT: Nares patent NECK: Normal range of motion CV: Heart regular rate and rhythm LUNGS: No respiratory distress Musculoskeletal: Normal range of motion NEUROLOGICAL: Normal speech PSYCH: Patient is anxious on exam MDM: Patient seen and examined for rapid initial assessment. Vital signs reviewed. A comprehensive ED assessment and evaluation of the patient, analysis of test results and completion of the medical decision making process will be conducted by additional ED providers. *Note is created using voice recognition software and may contain spelling, syntax or grammatical errors. TRAVEL OUTSIDE OF THE [place] IN LAST 30 DAYS: No - Related Data Allergies/Adverse Reactions: aspirin [Aspirin] Allergy (Verified 10/21/18 12:46) Past Medical History - Social History Chew tobacco use (# tins/day): No Frequency of alcohol use: Rare Drug Abuse: Marijuana Renal/ Medical History: Denies: Hx Peritoneal Dialysis Malignancy Medical History: Reports: Hx Cervical Cancer Past Surgical History: Reports: Hx Gynecologic Surgery - bartholin gland abscess, Hx Orthopedic Surgery - Immunizations Immunizations up to date: Yes Hx Diphtheria, Pertussis, Tetanus Vaccination: Yes Physical Exam - Vital signs Vitals: Temp Pulse Resp BP Pulse Ox 98.1 F 88 20 130/89 H 100 10/21/18 12:30 10/21/18 12:30 10/21/18 12:30 10/21/18 12:30 10/21/18 12:30 Course - Vital Signs Vital signs: Temp Pulse Resp BP Pulse Ox 98.1 F 88 20 130/89 H 100 10/21/18 12:30 10/21/18 12:30 10/21/18 12:30 10/21/18 12:30 10/21/18 12:30 Doctor's Discharge - Discharge Referrals: CHACHO MEDRANO MD [Primary Care Provider] - Follow up as needed
--- NOTE | 2018-10-21 14:43 | RADIOLOGY REPORT (SQ) ---
EXAM DESCRIPTION: CHEST SINGLE VIEW COMPLETED DATE/TIME: 10/21/2018 2:31 pm REASON FOR STUDY: shortness of breath COMPARISON: None. EXAM PARAMETERS: NUMBER OF VIEWS: One view. TECHNIQUE: Single frontal radiographic view of the chest acquired. RADIATION DOSE: NA LIMITATIONS: None. FINDINGS: LUNGS AND PLEURA: No opacities, masses or pneumothorax. No pleural effusion. MEDIASTINUM AND HILAR STRUCTURES: No masses. Contour normal. HEART AND VASCULAR STRUCTURES: Heart normal in size. Normal vasculature. BONES: No acute findings. HARDWARE: None in the chest. OTHER: No other significant finding. IMPRESSION: NO ACUTE RADIOGRAPHIC FINDING IN THE CHEST. TECHNICAL DOCUMENTATION: JOB ID: [id number] [employer]- All Rights Reserved Reading location - IP/workstation name: [email or web address]
[2018-10-21 14:44] LABS: ABSOLUTE LYMPHOCYTES (AUTO) 1.1 10^3/uL (0.5-4.7); ABSOLUTE MONOCYTES (AUTO) 0.4 10^3/uL (0.1-1.4); ABSOLUTE NEUT (AUTO) 1.9 10^3/uL (1.7-8.2); BASOPHILS % (AUTO) 0.6 % (0-2); EOSINOPHILS % (AUTO) 0.8 % (0-6); HEMATOCRIT 39.3 % (36.0-47.0); HEMOGLOBIN 13.7 g/dL (12.0-15.5); LYMPHOCYTES % (AUTO) 32.6 % (13-45); MEAN CORPUSCULAR HEMOGLOBIN 36.5 pg (27.0-33.4); MEAN CORPUSCULAR HGB CONC 34.9 g/dL (32.0-36.0); MEAN CORPUSCULAR VOLUME 104 fl (80-97); MONOCYTES % (AUTO) 11.2 % (3-13); PLATELET COUNT 200 10^3/uL (150-450); RED BLOOD COUNT 3.77 10^6/uL (3.72-5.28); RED CELL DISTRIBUTION WIDTH 12.7 % (11.5-14.0); SEGMENTED NEUTROPHILS % (AUTO) 54.8 % (42-78); TOTAL CELLS COUNTED % (AUTO) 100 %; WHITE BLOOD COUNT 3.4 10^3/uL (4.0-10.5)
[2018-10-21 15:32] LABS: APPEARANCE,URINE TURBID; BILIRUBIN,URINE NEGATIVE (NEGATIVE); COLOR,URINE AMBER; GLUCOSE, URINE NEGATIVE (NEGATIVE); KETONES,URINE NEGATIVE (NEGATIVE); LEUKOCYTE ESTERASE,URINE LARGE (NEGATIVE); NITRITE,URINE NEGATIVE (NEGATIVE); PROTEIN,URINE NEGATIVE (NEGATIVE); URINE SPECIFIC GRAVITY 1.021; UROBILINOGEN,URINE NEGATIVE mg/dL (<2.0)
[2018-10-21 16:37] VITALS: BP 136/81
--- NOTE | 2018-10-21 17:00 | ER Document Report ---
ED General - General Chief Complaint: Anxiety Stated Complaint: SHORT OF BREATH,ANXIOUS FEELING Time Seen by Provider: 10/21/18 12:42 Primary Care Provider: CHACHO MEDRANO MD [Primary Care Provider] - Follow up as needed Mode of Arrival: Ambulatory Information source: Patient Notes: Patient is a 43-year-old female who presents to the emergency department chief complaint of anxiety. Patient reports she had been diagnosed with cervical cancer in the fall and was doing chemotherapy until May. She states that she has a lot of stressors on her lately. She states that she has night sweats and that her smalltalk developer started her on estrogen. She states she is used to have night sweats and increased anxiety. Patient denies any suicidal homicidal ideations. Denies any chest pain, shortness of breath, difficulty breathing. TRAVEL OUTSIDE OF THE [place] IN LAST 30 DAYS: No - Related Data Allergies/Adverse Reactions: aspirin [Aspirin] Allergy (Verified 10/21/18 12:46) Past Medical History - General Information source: Patient - Social History Smoking Status: Never Smoker Chew tobacco use (# tins/day): No Frequency of alcohol use: Rare Drug Abuse: Marijuana Family History: Reviewed & Not Pertinent Patient has suicidal ideation: No Patient has homicidal ideation: No Renal/ Medical History: Denies: Hx Peritoneal Dialysis Malignancy Medical History: Reports: Hx Cervical Cancer Past Surgical History: Reports: Hx Gynecologic Surgery - bartholin gland abscess, Hx Orthopedic Surgery - Immunizations Immunizations up to date: Yes Hx Diphtheria, Pertussis, Tetanus Vaccination: Yes Review of Systems - Review of Systems Constitutional: No symptoms reported EENT: No symptoms reported Cardiovascular: No symptoms reported Respiratory: No symptoms reported Gastrointestinal: No symptoms reported Genitourinary: No symptoms reported Female Genitourinary: No symptoms reported Musculoskeletal: No symptoms reported Skin: No symptoms reported Hematologic/Lymphatic: No symptoms reported Neurological/Psychological: Anxiety Physical Exam - Vital signs Vitals: Temp Pulse Resp BP Pulse Ox 98.1 F 88 20 130/89 H 100 10/21/18 12:30 10/21/18 12:30 10/21/18 12:30 10/21/18 12:30 10/21/18 12:30 - Notes Notes: PHYSICAL EXAMINATION: GENERAL: Well-appearing, well-nourished and in no acute distress. HEAD: Atraumatic, normocephalic. EYES: Pupils equal round and reactive to light, extraocular movements intact, conjunctiva are normal. ENT: Nares patent, oropharynx clear without exudates. Moist mucous membranes. NECK: Normal range of motion, supple without lymphadenopathy LUNGS: Breath sounds clear to auscultation bilaterally and equal. No wheezes rales or rhonchi. HEART: Regular rate and rhythm without murmurs ABDOMEN: Soft, nontender, nondistended abdomen. No guarding, no rebound. No masses appreciated. Female : deferred Musculoskeletal: Normal range of motion, no pitting or edema. No cyanosis. NEUROLOGICAL: Cranial nerves grossly intact. Normal speech, normal gait. Normal sensory, motor exams PSYCH: Normal mood, normal affect. SKIN: Warm, Dry, normal turgor, no rashes or lesions noted. Course - Re-evaluation Re-evalutation: CBC is unremarkable. Patient has been stuck multiple times for lab work. Metabolic panel has not been drawn again as patient initially requested a more experienced geodetic surveyor technologist to come stick her. At the time of my initial evaluation patient patient reports she is feeling much improved after given Ativan in the department. Patient states that she does not want to stay to complete her blood work. She is asking for prescription for anxiety and states that she has a follow-up appointment with her smalltalk developer in [place] in 2 weeks. Patient does not have any chest pain or shortness of breath. Patient will be given a prescription for hydroxyzine. ED return precautions were discussed with patient. Encouraged her to keep her follow-up appointment with her primary care provider return to the emergency room for any new or worsening symptoms. - Vital Signs Vital signs: Temp Pulse Resp BP Pulse Ox 98.2 F 105 H 16 136/81 H 100 10/21/18 16:37 10/21/18 16:37 10/21/18 16:37 10/21/18 16:37 10/21/18 16:37 - Laboratory Result Diagrams: 10/21/18 14:20 10/21/18 13:19 Laboratory results interpreted by me: 10/21/18 10/21/18 13:19 14:20 WBC 3.4 L MCV 104 H MCH 36.5 H Ur Leukocyte Esterase LARGE H Urine Ascorbic Acid 40 H Discharge - Discharge Clinical Impression: Anxiety Urinary tract infection Qualifiers: Urinary tract infection type: site unspecified Hematuria presence: without hematuria Qualified Code(s): N39.0 - Urinary tract infection, site not specified Condition: Stable Disposition: HOME, SELF-CARE Instructions: Anxiety ([facility]) Additional Instructions: Anxiety The physician feels that some of your health problems are being caused by anxiety. Anxiety affects your health in many ways. Anxiety alone can cause palpitations, sweats, chest pains, abdominal pains, shortness of breath, and headaches. It contributes to ulcer disease, high blood pressure, irritable bowel syndrome, and has been shown to cause flare-ups of many other diseases. Anxiety is not a simple disorder to treat. If the anxiety is due to recent life stresses, you may simply need time to "work through" the changes. If the anxiety is due to an underlying unhappiness with yourself or due to psychiatric disturbance, professional help will be needed. Your physician can refer you for further help if needed. Anti-anxiety medication is occasionally given if the stress is acute or if you are having trouble sleeping. Chronic or frequent use of these medications is not a good idea because the body becomes reliant on it, preventing you from dealing with life's normal stresses. URINARY TRACT INFECTION: Your evaluation indicates that you have a urinary tract infection. This is due to germs growing in the bladder. This is a common problem. This infection usually responds quickly to antibiotics. Your antibiotic should be taken exactly as prescribed. Drink plenty of fluids -- three to four quarts a day. Occasionally, a bladder anesthetic will be prescribed to help stop the feeling of urgency until the antibiotic has a chance to clear the infection. This may cause your urine to be dark orange. Certain urine infections require a culture. If the doctor obtained a culture, the results will be back in two days. You should call to see if a change in treatment is needed. A repeat urinalysis after you finish treatment is often recommended. The physician will let you know if further testing is required. Call the doctor if you develop fever, chills, flank pain, inability to urinate, or blood in the urine. ANTIBIOTIC THERAPY: You have been given an antibiotic prescription. It's important that you take all the medication, unless instructed otherwise by your physician. Failure to complete the entire course can result in relapse of your condition. Common side effects of antibiotics include nausea, intestinal cramping, or diarrhea. Women may develop vaginal yeast infections, and babies can get yeast (thrush) in the mouth following the use of antibiotics. Contact your physician if you develop significant side effects from this medication. Allergy to this antibiotic can result in hives, wheezing, faintness, or itching. If symptoms of allergy occur, stop the medication and call the doctor. CEPHALEXIN: The antibiotic you've been prescribed is a member of the cephalosporin class. This type of antibiotic covers a wide variety of infections, including those of the skin, lungs, and urinary tract. It's useful for staph infections. This antibiotic is slightly similar to the penicillin family. In rare cases, a person who is allergic to penicillin will also be allergic to this medication. If you have had a severe allergic reaction to penicillin, and have not taken this antibiotic since that time, notify your doctor. Antibiotics which cover many germs ("broad spectrum" antibiotics) are more likely to cause diarrhea or "yeast" infections. Women prone to vaginal yeast problems may suffer an attack after taking this antibiotic. In infants, oral thrush (white spots "stuck" on the cheek) or yeast diaper rash may result. See your doctor if these problems occur. Call at once if you develop itching, hives, shortness of breath, or lightheadedness. Please take medications as prescribed. You may take 1-2 tablets up to 4 times daily as needed for anxiety symptoms. Please keep your follow-up that you have scheduled with your doctor in [place]. Please return to the emergency department for any new or worsening symptoms. Prescriptions: Cephalexin [Cephalexin 500 MG Tablet] 1 tab PO BID #14 tablet Hydroxyzine HCl [Atarax 25 mg Tablet] 1 - 2 tab PO QID #25 tablet Forms: Return to Work Referrals: CHACHO MEDRANO MD [Primary Care Provider] - Follow up as needed
--- NOTE | 2018-10-21 17:41 | EKG REPORT ---
SEVERITY:- BORDERLINE ECG - SINUS RHYTHM PROBABLE LEFT ATRIAL ABNORMALITY : Confirmed by: Mario Beaver MD 21-Oct-2018 17:40:55
== END 2018-10-21 17:07 | disposition home or self-care (01) ==
LOC: ER 12:21
DX: F41.9 Anxiety disorder, unspecified (principal); N39.0 Urinary tract infection, site not specified; R61 Generalized hyperhidrosis; Z79.899 Other long term (current) drug therapy; Z85.41 Personal history of malignant neoplasm of cervix uteri; Z92.21 Personal history of antineoplastic chemotherapy
CPT/HCPCS: 93005; 99284; 96361; 96374; 36415; 85025; 81025; 81001; 71045; 93010; J2060; J7030

== ENCOUNTER 2019-02-13 08:03 | Emergency (ER) | payer OTHER ==
[2019-02-13] MEDS ORDERED: MECLIZINE HCL 25 MG TABLET PO ONE (09:20)
[2019-02-13] MEDS ORDERED: NORMAL SALINE 1000 ML 1,000 ML IV ONE (09:20)
--- NOTE | 2019-02-13 09:21 | ER Document Report ---
ED Medical Screen (RME) - General Chief Complaint: Dizziness Stated Complaint: DIZZINESS Time Seen by Provider: 02/13/19 09:17 Primary Care Provider: CHACHO MEDRANO MD [Primary Care Provider] - Follow up as needed TRAVEL OUTSIDE OF THE [place] IN LAST 30 DAYS: No - HPI Notes: 02/13/19 09:17 Patient is a 43-year-old female with a history of cervical cancer in remission and currently starting menopause who presents complaining of feeling fatigued, SOB, and having dizziness primarily with movement over the past couple days. Patient states that she did have nausea and vomiting yesterday which has since resolved. She has been able to eat and drink without difficulty. She is urinating normally and having normal bowel movements. Patient states that she does not have any pain anywhere. Denies CASH, fever, neck pain, URI, CP, Abd pain, dysuria, back pain, or rash. I have treated and performed a rapid initial assessment of this patient. A comprehensive ED assessment and evaluation of the patient, analysis of test results and completion of medical decision making process will be conducted by additional ED providers. PHYSICAL EXAMINATION: GENERAL: Well-appearing, well-nourished and in no acute distress. A&Ox4. Answers questions appropriately. LUNGS: Breath sounds clear to auscultation bilaterally and equal. No wheezes rales or rhonchi. HEART: Regular rate and rhythm without murmurs, rubs, gallops. Extremities: No cyanosis, clubbing, or edema b/l. NEUROLOGICAL: Normal speech, normal gait. PSYCH: Normal mood, normal affect. - Related Data Allergies/Adverse Reactions: aspirin [Aspirin] Allergy (Verified 02/13/19 08:06) Past Medical History Renal/ Medical History: Denies: Hx Peritoneal Dialysis Malignancy Medical History: Reports: Hx Cervical Cancer Past Surgical History: Reports: Hx Gynecologic Surgery - bartholin gland abscess, Hx Orthopedic Surgery - Immunizations Immunizations up to date: Yes Hx Diphtheria, Pertussis, Tetanus Vaccination: Yes Physical Exam - Vital signs Vitals: Temp Pulse Resp BP Pulse Ox 98.1 F 97 15 136/83 H 98 02/13/19 08:08 02/13/19 08:08 02/13/19 08:08 02/13/19 08:08 02/13/19 08:08 Course - Vital Signs Vital signs: Temp Pulse Resp BP Pulse Ox 98.1 F 97 15 136/83 H 98 02/13/19 08:08 02/13/19 08:08 02/13/19 08:08 02/13/19 08:08 02/13/19 08:08 Doctor's Discharge - Discharge Referrals: CHACHO MEDRANO MD [Primary Care Provider] - Follow up as needed
[2019-02-13 09:53] LABS: ABSOLUTE LYMPHOCYTES (AUTO) 1.1 10^3/uL (0.5-4.7); ABSOLUTE MONOCYTES (AUTO) 0.2 10^3/uL (0.1-1.4); ABSOLUTE NEUT (AUTO) 2.1 10^3/uL (1.7-8.2); BASOPHILS % (AUTO) 0.3 % (0-2); EOSINOPHILS % (AUTO) 0.5 % (0-6); HEMATOCRIT 40.6 % (36.0-47.0); HEMOGLOBIN 13.8 g/dL (12.0-15.5); LYMPHOCYTES % (AUTO) 31.4 % (13-45); MEAN CORPUSCULAR HEMOGLOBIN 34.9 pg (27.0-33.4); MEAN CORPUSCULAR VOLUME 103 fl (80-97); MONOCYTES % (AUTO) 6.6 % (3-13); PLATELET COUNT 216 10^3/uL (150-450); RED BLOOD COUNT 3.94 10^6/uL (3.72-5.28); RED CELL DISTRIBUTION WIDTH 13.2 % (11.5-14.0); SEGMENTED NEUTROPHILS % (AUTO) 61.2 % (42-78); TOTAL CELLS COUNTED % (AUTO) 100 %; WHITE BLOOD COUNT 3.4 10^3/uL (4.0-10.5)
[2019-02-13 10:11] LABS: ALANINE AMINOTRANSFERASE 24 U/L (9-52); ALBUMIN 4.5 g/dL (3.5-5.0); ALKALINE PHOSPHATASE 85 U/L (38-126); ANION GAP 8 (5-19); ASPARTATE AMINO TRANSFERASE 20 U/L (14-36); BILIRUBIN,DIRECT 0.2 mg/dL (0.0-0.4); BILIRUBIN,TOTAL 0.4 mg/dL (0.2-1.3); BLOOD UREA NITROGEN 15 mg/dL (7-20); CALCIUM 10.2 mg/dL (8.4-10.2); CARBON DIOXIDE 32 mmol/L (22-30); CHLORIDE 102 mmol/L (98-107); GLUCOSE 102 mg/dL (75-110); POTASSIUM 4.1 mmol/L (3.6-5.0); TOTAL PROTEIN 7.8 g/dL (6.3-8.2)
--- NOTE | 2019-02-13 10:42 | RADIOLOGY REPORT (SQ) ---
EXAM DESCRIPTION: CHEST SINGLE VIEW COMPLETED DATE/TIME: 02/13/2019 10:26 am REASON FOR STUDY: dizzy, sob COMPARISON: 10/21/2018 EXAM PARAMETERS: NUMBER OF VIEWS: One view. TECHNIQUE: Single frontal radiographic view of the chest acquired. RADIATION DOSE: NA LIMITATIONS: None. FINDINGS: LUNGS AND PLEURA: No opacities, masses or pneumothorax. No pleural effusion. MEDIASTINUM AND HILAR STRUCTURES: No masses. Contour normal. HEART AND VASCULAR STRUCTURES: Heart normal in size. Normal vasculature. BONES: No acute findings. HARDWARE: None in the chest. OTHER: No other significant finding. IMPRESSION: No acute abnormality of the lungs in AP projection. TECHNICAL DOCUMENTATION: JOB ID: [id number] [employer]- All Rights Reserved Reading location - IP/workstation name: [email or web address]
--- NOTE | 2019-02-13 10:45 | EKG REPORT ---
SEVERITY:- NORMAL ECG - SINUS RHYTHM : Confirmed by: Kelly Terry MD 13-Feb-2019 10:45:24
--- NOTE | 2019-02-13 10:46 | ER Document Report ---
ED Dizziness/Weakness - General Chief Complaint: Dizziness Stated Complaint: DIZZINESS Time Seen by Provider: 02/13/19 09:17 Primary Care Provider: CHACHO MEDRANO MD [ACTIVE STAFF] - Follow up as needed Notes: Patient says she is been experiencing lightheadedness and dizziness since Tuesday. She was better yesterday, but then worsened again today, although not as bad as it was on Tuesday. She vomited once on Tuesday and has not vomited anymore and is not been nauseated. Denies any headache. This morning symptoms began while she was getting ready to go to work. Symptoms are worsened by head movement. Denies any change in vision. Denies any headache. Denies any fever, but has had night sweats and concerned she may be dehydrated. Says she has these flashes frequently and attributes it to going through the menopausal change. No bleeding anywhere. Only current medication is Premarin cream. Patient has a history of cervical cancer for which she had radiation therapy followed by chemotherapy which was completed in May. She had a follow-up appointment with her Bhargavi. January of this month and was told that everything was fine and normal. She has a CT scan of her abdomen and pelvis scheduled on March 05. Denies any chest pains. Has felt her heart racing at times. Patient acknowledges under a she has been doing a lot of traveling to different schools with her son who is seeking a football scholarship. She is a single mom. TRAVEL OUTSIDE OF THE [place] IN LAST 30 DAYS: No - Related Data Allergies/Adverse Reactions: aspirin [Aspirin] Allergy (Verified 02/13/19 08:06) Past Medical History - Social History Smoking Status: Never Smoker Chew tobacco use (# tins/day): No Frequency of alcohol use: Rare Drug Abuse: Marijuana Family History: Reviewed & Not Pertinent Patient has suicidal ideation: No Patient has homicidal ideation: No Malignancy Medical History: Reports: Hx Cervical Cancer Past Surgical History: Reports: Hx Gynecologic Surgery - bartholin gland abscess, Hx Orthopedic Surgery - Immunizations Immunizations up to date: Yes Hx Diphtheria, Pertussis, Tetanus Vaccination: Yes Review of Systems - Review of Systems Notes: REVIEW OF SYSTEMS: CONSTITUTIONAL : Denies fever. EENT: Denies eye, ear, nose or mouth or throat pain or other symptoms. CARDIOVASCULAR: Denies chest pain. RESPIRATORY: Denies cough, chest congestion, or shortness of breath. GASTROINTESTINAL: Denies abdominal pain or nausea, vomiting, or diarrhea. GENITOURINARY: Denies difficulty or painful urinating, urinary frequency, blood in urine. MUSCULOSKELETAL: Denies back or neck pain. Denies joint pain or swelling. SKIN: Denies rash or skin lesions. NEUROLOGICAL: Denies LOC or altered mental status. Denies headache. Denies sensory loss or motor deficits. Psychiatric: Patient admits that she is experiencing a lot of anxiety due to various things in her life, including traveling with her son for scholarship visits, financial matters, being a single mom, etc. ALL OTHER SYSTEMS REVIEWED AND NEGATIVE. REVIEW OF SYSTEMS: Physical Exam - Vital signs Vitals: Temp Pulse Resp BP Pulse Ox 98.1 F 97 15 136/83 H 98 02/13/19 08:08 02/13/19 08:08 02/13/19 08:08 02/13/19 08:08 02/13/19 08:08 Interpretation: Normal Notes: PHYSICAL EXAMINATION: GENERAL: Well-appearing, in no acute distress. Anxious. Vital signs are all normal. HEAD: Atraumatic, normocephalic. EYES: Pupils equal round and reactive to light, extraocular movements intact. ENT: oropharynx clear without exudates. Moist mucous membranes. NECK: Normal range of motion, supple. LUNGS: Breath sounds clear and equal bilaterally. HEART: Regular rate and rhythm without murmurs. ABDOMEN: Soft, nontender. No guarding or rebound. No masses. BACK: No tenderness throughout entire back. EXTREMITIES: Normal range of motion without pain. NEUROLOGICAL: Normal speech, normal gait. Normal sensory, motor, and reflex exams. Awake, alert, and oriented x3. Cranial nerves normal. PSYCH: Normal mood, normal affect. Anxious. SKIN: Warm, dry, no rashes. Course - Re-evaluation Re-evalutation: 02/13/19 13:09 All of patient's lab studies came back essentially normal. Went over all of them with the patient. Discussed the likelihood that stress may be playing a role in her symptoms. She agreed that perhaps a few mild sedatives like Ativan to take as needed might be helpful. I am giving her a prescription for 15 of them. - Vital Signs Vital signs: Temp Pulse Resp BP Pulse Ox 98.1 F 60 16 134/95 H 100 02/13/19 11:49 02/13/19 11:49 02/13/19 11:49 02/13/19 11:49 02/13/19 11:49 - Laboratory Result Diagrams: 02/13/19 09:30 02/13/19 09:30 Laboratory results interpreted by me: 02/13/19 02/13/19 09:30 09:30 WBC 3.4 L MCV 103 H MCH 34.9 H Carbon Dioxide 32 H - Diagnostic Test Radiology reviewed: Image reviewed, Reports reviewed - CT scan of the brain was normal. Radiology results interpreted by me: 02/13/19 13:10 Chest x-ray is normal. Discharge - Discharge Clinical Impression: Dizziness, Vertigo, Anxiety Condition: Good Disposition: HOME, SELF-CARE Additional Instructions: DIZZINESS: Under normal circumstances, your sense of balance is controlled by a number of signals that your brain receives from several locations: Eyes. No matter what your position, visual signals help you determine where your body is in space and how it's moving. Sensory nerves. These are in your skin, muscles and joints. Sensory nerves send messages to your brain about body movements and positions. Inner ear. The organ of balance in your inner ear is the vestibular labyrinth. It includes loop-shaped structures (semicircular canals) that contain fluid and fine, hair-like sensors that monitor the rotation of your head. Near the semicircular canals are the utricle and saccule, which contain tiny particles called otoconia (k-glk-EXG-nee-uh). These particles are attached to sensors that help detect gravity and myyt-htr-ikgip motion. Good balance depends on at least two of these three sensory systems working well. For instance, closing your eyes while washing your hair in the shower doesn't mean you'll lose your balance. Signals from your inner ear and sensory nerves help keep you upright. However, if your central nervous system can't process signals from all of these locations, if the messages are contradictory, or if the sensory systems aren't functioning properly, you may experience loss of balance. Dizziness may have a number of potential causes. These may include: Vertigo Vertigo - the false sense of motion or spinning - is the most common symptom of dizziness. Sitting up or moving around may make it worse. Sometimes vertigo is severe enough to cause nausea and vomiting. Vertigo usually results from a problem with the nerves and the structures of the balance mechanism in your inner ear (vestibular system), which sense movement and changes in your head position. Abnormal rhythmic eye movements (nystagmus) almost always accompany vertigo. Causes of vertigo may include: Benign paroxysmal positional vertigo (BPPV). BPPV involves intense, brief episodes of vertigo associated with a change in the position of your head, often when you turn over in bed or sit up in the morning. It occurs when normal calcium carbonate crystals (otoconia) break loose and fall into the wrong part of the canals in your inner ear. When these particles shift, they stimulate sensors in your ear, producing an episode of vertigo. Doctors don't know what causes BPPV, but it may be a natural result of aging. Trauma to your head also may lead to BPPV. Inflammation in the inner ear. Signs and symptoms of inflammation of the inner ear (acute vestibular neuronitis or labyrinthitis) include sudden, intense vertigo that may persist for several days, with nausea and vomiting. It can be incapacitating, requiring bed rest to minimize the signs and symptoms. Fortunately, vestibular neuronitis generally subsides and clears up on its own. Recovery time may be shorter with vestibular rehabilitation exercises. Although the cause of this condition is unknown, it may be a viral infection. Meniere's disease. This disease involves the excessive buildup of fluid in your inner ear. It may affect adults at any age and is characterized by sudden episodes of vertigo lasting 30 minutes to an hour or longer. Other signs and symptoms include the feeling of fullness in your ear, buzzing or ringing in your ear (tinnitus), and fluctuating hearing loss. The cause of Meniere's disease is unknown. Vestibular migraine. People who experience a vestibular migraine are very sensitive to motion. Dizziness and vertigo caused by a vestibular migraine may be triggered by turning your head quickly, being in a crowded or confusing place, driving or riding in a vehicle, or even watching movement on TV. A vestibular migraine may cause feelings of imbalance or unsteadiness, hearing loss, "muffled" hearing, or ringing in your ears (tinnitus). For most people with a vestibular migraine, vertigo doesn't necessarily happen at the same time as the headache. Instead, typical migraine triggers may lead to vertigo without an actual migraine. Attacks of migrainous vertigo can last from a few minutes to several days. Acoustic neuroma. An acoustic neuroma (schwannoma) is a noncancerous (benign) growth on the acoustic nerve, which connects the inner ear to your brain. Signs and symptoms of an acoustic neuroma may include dizziness, loss of balance, hearing loss and tinnitus. Rapid changes in motion. Riding on roller coasters or in boats, cars or even airplanes may on occasion make you dizzy. Other causes. Rarely, vertigo can be a symptom of a more serious neurological problem such as a stroke, brain hemorrhage or multiple sclerosis. Feeling of faintness (presyncope) "Presyncope" is the medical term for feeling faint and lightheaded without losing consciousness. Sometimes nausea, pale skin and a sense of dizziness accompany a feeling of faintness. Causes of presyncope include: Drop in blood pressure (orthostatic hypotension). A dramatic drop in your systolic blood pressure - the higher number in your blood pressure reading - may result in lightheadedness or a feeling of faintness. It can occur after sitting up or standing too quickly. Inadequate output of blood from the heart. Conditions such as partially blocked arteries (atherosclerosis), disease of the heart muscle (cardiomy opathy), abnormal heart rhythm (arrhythmia) or a decrease in blood volume may cause inadequate blood flow from your heart. Loss of balance (disequilibrium) Disequilibrium is the loss of balance or the feeling of unsteadiness when you walk. Causes may include: Inner ear (vestibular) problems. Abnormalities with your inner ear can cause you to feel like you are floating, have a heavy head or are unsteady in the dark. Sensory disorders. Failing vision and nerve damage in your legs (peripheral neuropathy) are common in older adultsand may result in difficulty maintaining your balance. Joint and muscle problems. Muscle weakness and osteoarthritis - the type of arthritis that involves wear and tear of your joints - can contribute to loss of balance when it involves your weight-bearing joints. Medications. Loss of balance can be a side effect of certain medications, such as anti-seizure drugs, sedatives and tranquilizers. Lightheadedness and other kinds of dizziness Feeling lightheaded is the feeling of being "spaced out" or having the sensation of spinning inside your head. It can also give you the sensation that if your lightheadedness worsens, you might lose consciousness. Causes may include: Inner ear disorders. These abnormalities of your inner ear can lead to illusions of motion and make you feel like you're floating. Anxiety disorders. Certain anxiety disorders, such as panic attacks and a fear of leaving home or being in large, open spaces (agoraphobia), may cause lightheadedness. Hyperventilation. Abnormally rapid breathing that often accompanies anxiety disorders may make you feel lightheaded. NORMAL EXAM AND WORKUP: At this time, your examination and workup show no significant abnormality. No significant abnormal physical findings were noted. All laboratory, EKG, and imaging (x-ray, CT scans, ultrasound) studies that were ordered show no significant abnormality. Although your examination and all studies that were ordered showed no significant abnormal finding, there are no examinations and no studies that are 100% accurate. There is always the possibility that some abnormality could e xist and not be detected with physical examination or within the limits and capabilities of laboratory and other studies. You should return or follow up as you were instructed on your visit today for further evaluation if your symptoms do not resolve. Anxiety The physician feels that some of your health problems are being caused by anxiety. Anxiety affects your health in many ways. Anxiety alone can cause palpitations, sweats, chest pains, abdominal pains, shortness of breath, and headaches. It contributes to ulcer disease, high blood pressure, irritable bowel syndrome, and has been shown to cause flare-ups of many other diseases. Anxiety is not a simple disorder to treat. If the anxiety is due to recent life stresses, you may simply need time to "work through" the changes. If the anxiety is due to an underlying unhappiness with yourself or due to psychiatric disturbance, professional help will be needed. Your physician can refer you for further help if needed. Anti-anxiety medication is occasionally given if the stress is acute or if you are having trouble sleeping. Chronic or frequent use of these medications is not a good idea because the body becomes reliant on it, preventing you from dealing with life's normal stresses. Benzodiazepines You have been given a benzodiazepine medication. Examples of this type of medicine include Valium, Xanax, Librium, Ativan, and Halcion. Benzodiazepines have many uses. Medications of this type are used for insomnia, anxiety, muscle spasms, seizures, and drug and alcohol withdrawal. You may become very drowsy when you first take the medication. You should not drive or operate machinery while under its effects. Do not combine the medication with alcohol, or with any other medication without talking to your doctor. Do not take if without specific instruction from your textbook associate. Some benzodiazepines may have harmful interactions with oral antifungal medicines such as ketoconazole, itraconazole, and nefazodone. If you are taking an antifungal medicine, discuss this with your doctor before taking benzodiazepines. FOLLOW-UP CARE: If you have been referred to a physician for follow-up care, call the [facility] office for an appointment as you were instructed or within the next two days. If you experience worsening or a significant change in your symptoms, notify the physician immediately or return to the Emergency Department at any time for re-evaluation. Prescriptions: Lorazepam [Ativan 1 mg Tablet] 1 mg PO Q6HP PRN #15 tab PRN Reason: Forms: Return to Work Referrals: CHACHO MEDRANO MD [ACTIVE STAFF] - Follow up as needed
--- NOTE | 2019-02-13 11:29 | RADIOLOGY REPORT (SQ) ---
EXAM DESCRIPTION: CT HEAD WITHOUT COMPLETED DATE/TIME: 02/13/2019 11:10 am REASON FOR STUDY: Lightheaded,dizzy feeling 2 days, Hx cervical CA COMPARISON: None. TECHNIQUE: Axial images acquired through the brain without intravenous contrast. Images reviewed wi th bone, brain and subdural windows. Images stored on PACS. All CT scanners at this facility use dose modulation, iterative reconstruction, and/or weight based d osing when appropriate to reduce radiation dose to as low as reasonably achievable (ALARA). [facility]: Dose Right [facility]: CareDose [facility]: Dose Right [facility]: Teradose 4D [facility]: AgentPair RADIATION DOSE: CT Rad equipment meets quality standard of care and radiation dose reduction techniq ues were employed. CTDIvol: 53.2 mGy. DLP: 1017 mGy-cm. mGy. LIMITATIONS: None. FINDINGS: VENTRICLES: Normal size and contour. CEREBRUM: No masses. No hemorrhage. No midline shift. No evidence for acute infarction. Normal gra y/white matter differentiation. No areas of low density in the white matter. CEREBELLUM: No masses. No hemorrhage. No alteration of density. No evidence for acute infarction. EXTRAAXIAL SPACES: No fluid collections. No masses. ORBITS AND GLOBE: No intra- or extraconal masses. Normal contour of globe without masses. CALVARIUM: No fracture. PARANASAL SINUSES: No fluid or mucosal thickening. SOFT TISSUES: No mass or hematoma. OTHER: No other significant finding. IMPRESSION: NORMAL BRAIN CT WITHOUT CONTRAST. EVIDENCE OF ACUTE STROKE: NO. COMMENT: Quality ID # [id number]: Final reports with documentation of one or more dose reduction techniques (e.g., Automated exposure control, adjustment of the mA and/or kV according to patient size, use of iterative reconstruction technique) TECHNICAL DOCUMENTATION: JOB ID: [id number] [employer]- All Rights Reserved Reading location - IP/workstation name: [email or web address]
[2019-02-13 11:49] VITALS: BP 134/95
== END 2019-02-13 11:55 | disposition home or self-care (01) ==
LOC: ER 08:03
DX: R42 Dizziness and giddiness (principal); F41.9 Anxiety disorder, unspecified; Z88.6 Allergy status to analgesic agent; Z85.41 Personal history of malignant neoplasm of cervix uteri
CPT/HCPCS: 93005; 99284; 96360; 36415; 83735; 84443; 85025; 80053; 84484; 71045; 70450; 93010; J7030

== ENCOUNTER → 2019-06-07 | Outpatient (CLI) | payer OTHER ==
--- NOTE | 2019-06-07 15:48 | WOMENS IMAGING REPORT ---
EXAM DESCRIPTION: 3D SCREENING MAMMO BILAT COMPLETED DATE/TIME: 06/07/2019 8:26 am REASON FOR STUDY: Z12.31 ENCOUNTER FOR SCREENING MAMMOGRAM FOR MALIGNANT NEOPLASM OF BREAST Z12.31 ENCNTR SCREEN MAMMOGRAM FOR MALIGNANT NEOPLASM OF ACE COMPARISON: 03/21/2018, mammograms and ultrasound EXAM PARAMETERS: Standard craniocaudal and mediolateral oblique views of each breast recorded using digital acquisition and breast tomosynthesis. Read with the assistance of CAD. .[facility] - Craft Coordinator Version 9.2 LIMITATIONS: None. FINDINGS: Findings present which are benign by mammographic criteria. No suspicious masses, calcific ations or architectural distortion. Pertinent benign findings: Left breast parenchymal cysts are smaller than on 03/21/2018 mammograms Benign mammographic findings may include one or more of the following: Smooth masses, popcorn/rim/coa rse calcifications, asymmetries, post-procedure changes, and lesions with long-standing stability. IMPRESSION: BENIGN MAMMOGRAPHIC FINDINGS. BIRADS 2 BREAST DENSITY: b. There are scattered areas of fibroglandular density. BIRAD: ASSESSMENT: 2 BENIGN FINDING(S) RECOMMENDATION: ROUTINE SCREENING Please continue yearly bilateral screening mammography/tomosynthesis in May 2020. COMMENT: The patient has been notified of the results by letter per [place] requirements. Additional no tification policies are in place for contacting patient with suspicious or incomplete findings. Quality ID #[id number]: The [employer] recommends an annual screening mammogram for women aged 40 years or over. This facility utilizes a reminder system to ensure that all patients receive reminder letters, and/or direct phone calls for appointments. This includes reminders for routine scr eening mammograms, diagnostic mammograms, or other Breast Imaging Interventions when appropriate. Th is patient will be placed in the appropriate reminder system. TECHNICAL DOCUMENTATION: FINDING NUMBER: (1) ASSESSMENT: (1) JOB ID: [id number] [employer]- All Rights Reserved Reading location - IP/workstation name: [email or web address]
== END ==
LOC: WI 08:12
PROVIDERS: ATTEND Obstetrics & Gynecology
DX: Z12.31 Encounter for screening mammogram for malignant neoplasm of breast (principal)
CPT/HCPCS: 77063; 77067

== ENCOUNTER 2020-05-07 12:02 | Emergency (ER) | payer OTHER ==
[2020-05-07 12:11] VITALS: BP 133/88
--- NOTE | 2020-05-07 12:12 | ER Document Report ---
ED Medical Screen (RME) - General Chief Complaint: Dizziness Stated Complaint: POSSIBLE STROKE Time Seen by Provider: 05/07/20 12:10 Primary Care Provider: CHACHO MEDRANO MD [Primary Care Provider] - Follow up as needed Mode of Arrival: Ambulatory Information source: Patient Notes: 45-year-old female presented to ED for complaint of dizziness fatigue sometimes feeling a little weak. She states it started yesterday. She states she does have a headache on a scale of 1-5 level 1. She has no facial droop no palmar drift no problems raising or moving any legs she has full range of motion of all extremities. She is able to answer all questions appropriately. She has no confusion. She states she has a very minimal headache. She was sent over by her primary care doctor for dizziness. She states the last time she came to the hospital for dizziness they told her she had vertigo. She states she does have a history of cervical cancer did not have a hysterectomy does not smoke does not drink does not use any drugs. I have greeted and performed a rapid initial assessment of this patient. A comprehensive ED assessment and evaluation of the patient, analysis of test results and completion of medical decision making process will be conducted by an additional ED providers. TRAVEL OUTSIDE OF THE [place] IN LAST 30 DAYS: No - Related Data Allergies/Adverse Reactions: aspirin [Aspirin] Allergy (Verified 05/07/20 12:04) Past Medical History Renal/ Medical History: Denies: Hx Peritoneal Dialysis Malignancy Medical History: Reports: Hx Cervical Cancer Past Surgical History: Reports: Hx Gynecologic Surgery - bartholin gland abscess, Hx Orthopedic Surgery - Immunizations Immunizations up to date: Yes Hx Diphtheria, Pertussis, Tetanus Vaccination: Yes Doctor's Discharge - Discharge Referrals: CHACHO MEDRANO MD [Primary Care Provider] - Follow up as needed
[2020-05-07 12:56] LABS: APPEARANCE,URINE SLIGHTLY-CLOUDY; BILIRUBIN,URINE NEGATIVE (NEGATIVE); COLOR,URINE YELLOW; GLUCOSE, URINE NEGATIVE (NEGATIVE); KETONES,URINE NEGATIVE (NEGATIVE); LEUKOCYTE ESTERASE,URINE SMALL (NEGATIVE); NITRITE,URINE NEGATIVE (NEGATIVE); PROTEIN,URINE NEGATIVE (NEGATIVE); URINE SPECIFIC GRAVITY 1.023; UROBILINOGEN,URINE NEGATIVE mg/dL (<2.0)
[2020-05-07 13:11] LABS: URINE AMPHETAMINES SCREEN NEGATIVE; URINE BARBITURATES SCREEN NEGATIVE; URINE BENZODIAZEPINES SCREEN NEGATIVE; URINE COCAINE SCREEN NEGATIVE; URINE METHADONE SCREEN NEGATIVE; URINE PHENCYCLIDINE SCREEN NEGATIVE
[2020-05-07 13:12] LABS: URINE MARIJUANA (THC) SCREEN UNCONFIRMED POSITIVE
--- NOTE | 2020-05-07 20:47 | EKG REPORT ---
SEVERITY:- NORMAL ECG - SINUS RHYTHM : Confirmed by: Juan Alberto Barakat MD 07-May-2020 20:46:16
== END 2020-05-07 13:44 | disposition left against medical advice (07) ==
LOC: ER 12:02
DX: R42 Dizziness and giddiness (principal); R53.83 Other fatigue; R51 Headache
CPT/HCPCS: 80307; 81001; 82962; 93005; 93010; 99281